=== PATIENT | male | born 1945 | race Two or more races ===

== ENCOUNTER 2024-02-09 17:06 | Emergency (ER) | payer OTHER ==
[~2024-02-09] VITALS: Ht 167.6 cm; Wt 75.0 kg
[2024-02-09 17:20] VITALS: BP 194/80; PULSE 67; RESP 17; O2SAT 97
[2024-02-09] MEDS: LIDOCAINE 1% HCL (LOCAL ANESTH.) INJ 20ML MDV ID ONE (21:55)
[2024-02-09] MEDS ORDERED: CEPH500C PO (21:56)
[2024-02-09] MEDS ORDERED: ACET500T58 PO (21:56)
== END 2024-02-09 22:35 | disposition home or self-care (01) ==
LOC: ER 17:06
DX: S61.217A Laceration without foreign body of left little finger without damage to nail, initial encounter (principal); E78.5 Hyperlipidemia, unspecified; I10 Essential (primary) hypertension; Z85.9 Personal history of malignant neoplasm, unspecified; W31.89XA Contact with other specified machinery, initial encounter; Y93.89 Activity, other specified; Y92.89 Other specified places as the place of occurrence of the external cause; Y99.8 Other external cause status
CPT/HCPCS: 12002; 73130; 99283; J2001